=== PATIENT | female | born 1960 | race American Indian/Alaskan Native ===

== ENCOUNTER 2019-02-07 06:34 | Day surgery (SDC) | payer BC ==
[~2019-02-07 06:34] MED LIST: Lactated Ringers 1,000 ML IV SCH; ceFAZolin 2 GM in Premix Bag 1 BAG IV ONE
[2019-02-07 06:49] VITALS: BP 120/76
[2019-02-07] MEDS ORDERED: Bupivacaine 25%/EPINEPHrine/PF 0 ML ONE (07:26)
[2019-02-07] MEDS ORDERED: Lidocaine 2% 5 ML SDV ONE (07:30)
[2019-02-07] MEDS ORDERED: Ondansetron 4 MG/2 ML SDV ONE (07:30)
[2019-02-07] MEDS ORDERED: fentaNYL 100 MCG/2 ML SDV ONE (07:31)
[2019-02-07] MEDS ORDERED: Propofol 200 MG/20 ML SDV ONE (07:31)
[2019-02-07] MEDS ORDERED: Midazolam 1 MG/ML 2 ML SDV ONE (07:31)
--- NOTE | 2019-02-07 07:31 | PCM.PREANE ---
Preanesthetic Assessment - Anesthesia/Transfusion/Family Hx Anesthesia History: Prior Anesthesia Without Reaction Family History of Anesthesia Reaction: No Transfusion History: Prior Transfusion Without Reaction Type of Transfusion Reactions: Reports: Other (see below) Intubation History: Unknown - Review of Systems General: No Symptoms Pulmonary: No Symptoms Cardiovascular: No Symptoms Gastrointestinal: No Symptoms Neurological: No Symptoms Other: Reports: None - Physical Assessment Vital Signs: Last Vital Signs Temp 36.1 C 02/07/19 06:47 Pulse 86 02/07/19 06:47 Resp 16 02/07/19 06:47 BP 120/76 02/07/19 06:47 Pulse Ox 95 02/07/19 06:47 Height: 5 ft 6 in Weight: 94.801 kg ASA Class: 3 Mental Status: Alert & Oriented x3 Airway Class: Mallampati = 2 Dentition: Reports: Dentures (upper), Partial (lower) Thyro-Mental Finger Breadths: 3 Mouth Opening Finger Breadths: 3 ROM/Head Extension: Full Lungs: Clear to Auscultation, Normal Respiratory Effort Cardiovascular: Regular Rate, Irregular Rhythm - Lab Values: Laboratory Last Values Urine HCG, Qual NEGATIVE (NEGATIVE) 02/07/19 06:45 - Allergies Allergies/Adverse Reactions: Allergies Allergy/AdvReac Type Severity Reaction Status Date / Time phentermine Allergy shaking/joi Verified 02/04/19 07:37 sea Sulfa (Sulfonamide Allergy Rash/[place] Verified 02/04/19 07:37 Antibiotics) - Blood Blood Available: No - Anesthesia Plan Pre-Op Medication Ordered: None - Acknowledgements Anesthesia Type Planned: MAC Pt an Appropriate Candidate for the Planned Anesthesia: Yes Alternatives and Risks of Anesthesia Discussed w Pt/Guardian: Yes Pt/Guardian Understands and Agrees with Anesthesia Plan: Yes PreAnesthesia Questionnaire HEENT History: Reports: Other (See Below) Other HEENT History: wears glasses, has top denture and bottom partial Cardiovascular History: Reports: Afib, High Cholesterol, Hypertension Respiratory History: Reports: None Gastrointestinal History: Reports: Cirrhosis, GI Bleed, Hepatitis, Other (See Below) Other Gastrointestinal History: hx hepatitis C, has had 6 month treatment '16-' 17- cured, hx of GI bleed Genitourinary History: Reports: Renal Calculus [employer] History: Reports: Musculoskeletal History: Reports: Arthritis, Fracture, Other (See Below) Other Musculoskeletal History: hx pablito ankle fx's Neurological History: Reports: TIA (2017- right side numbness and droopy face) Psychiatric History: Reports: Anxiety Endocrine/Metabolic History: Reports: Diabetes, Type II, Obesity/BMI 30+ Other Endocrine/Metabolic History: hx of type II diabetes, no longer need tx for this since wt loss Hematologic History: Reports: Anticoagulation Therapy, Blood Transfusion(s) Immunologic History: Reports: None Oncologic (Cancer) History: Reports: None Dermatologic History: Reports: None - Infectious Disease History Infectious Disease History: Reports: Hepatitis C - Past Surgical History Head Surgeries/Procedures: Reports: None Cardiovascular Surgical History: Reports: None Respiratory Surgical History: Reports: None GI Surgical History: Reports: Cholecystectomy Female Surgical History: Reports: Kidney stone extraction Neurological Surgical History: Reports: C-Spine Other Neurological Surgeries/Procedures: neck surgery x2 Musculoskeletal Surgical History: Reports: None Oncologic Surgical History: Reports: None Dermatological Surgical History: Reports: None - History Comment History Comment: denies etoh - SUBSTANCE USE Smoking Status *Q: Former Smoker (quit 2013) - HOME MEDS Home Medications: Home Meds Nadolol [Naldol] 1.5 tab PO DAILY 03/16/16 [History] Pantoprazole Sodium [Protonix] 20 mg PO DAILY 03/16/16 [History] Aspirin [Adult Low Dose Aspirin EC] 81 mg PO DAILY 02/04/19 [History] Fluticasone Propionate [Flonase Allergy Relief] 1 spray NASBOTH BID PRN [History] Spironolactone [Aldactone] 25 mg PO DAILY 02/04/19 [History] Warfarin Sodium [Jantoven] 2.5 mg PO DAILY 02/04/19 [History] atorvaSTATin Calcium [Atorvastatin Calcium] 20 mg PO DAILY 02/04/19 [History] - CURRENT (IN HOUSE) MEDS Current Meds: Current Medications Lactated Ringer's (Ringers, Lactated) 1,000 mls @ 125 mls/hr IV ASDIRECTED [facility] Last Admin: 02/07/19 06:54 Dose: 125 mls/hr Discontinued Medications Cefazolin Sodium/Dextrose 2 gm (/ Premix) 50 mls @ 100 mls/hr IV ONETIME ONE Stop: 02/07/19 05:29
--- NOTE | 2019-02-07 08:02 | PCM.SN ---
- Free Text/Narrative Note: pt denied drainage, tenderness. on exam, r breast: there is no nodule, no expressible materials/erythema/cellulitis/tenderness, R axilla, no nodule; surgery cancelled; fu prn
== END 2019-02-07 08:15 | disposition home or self-care (01) ==
LOC: MW.SDS 06:34
PROVIDERS: ATTEND Surgery
DX: N61.0 Mastitis without abscess (principal); Z53.9 Procedure and treatment not carried out, unspecified reason; Z88.2 Allergy status to sulfonamides; Z88.8 Allergy status to other drugs, medicaments and biological substances; Z79.899 Other long term (current) drug therapy; Z79.82 Long term (current) use of aspirin; Z79.01 Long term (current) use of anticoagulants
CPT/HCPCS: 81025; J7120; J2001; J2250; J2405; J2704; J3010

== ENCOUNTER 2023-01-05 14:48 | Emergency (ER) | payer BC ==
[2023-01-05 19:30] VITALS: BP 129/80; PULSE 90
== END 2023-01-05 19:25 | disposition home or self-care (01) ==
LOC: MW.ED 14:48
DX: U07.1 COVID-19 (principal); I10 Essential (primary) hypertension; I48.91 Unspecified atrial fibrillation; E78.00 Pure hypercholesterolemia, unspecified; E11.9 Type 2 diabetes mellitus without complications; Z88.8 Allergy status to other drugs, medicaments and biological substances; Z88.2 Allergy status to sulfonamides; Z79.899 Other long term (current) drug therapy; Z79.01 Long term (current) use of anticoagulants; Z79.82 Long term (current) use of aspirin
CPT/HCPCS: 71046; 71046-26; 99284